=== PATIENT | male | born 1950 | race Caucasian/White ===

== ENCOUNTER 2017-08-14 14:01 | Emergency (ER) | payer BC, MEDICARE ==
--- NOTE | 2017-08-14 14:16 | ER Report ---
History and Physical Time Seen By MD: 14:15 Hx. of Stated Complaint: pt was trailriding, the horse got caught up in barbedwire, pt was bucked off horse and pt landed on his back. denies loss of conciousness, pt did not hit his hear. primary point of intact was on left scapula per pt. HPI/ROS CHIEF COMPLAINT: Back pain HISTORY OF PRESENT ILLNESS: This is a 66-year-old male who presents to the emergency department for left upper back pain secondary to falling off a horse. Patient states he was trail riding this morning, on vacation and the horse he was riding stepped on some charisse wire of course ultimately ended up knocking him off he fell onto his left scapular area. Patient denies hitting his head, no C- spine tenderness. No loss of consciousness. Soreness of breath secondary to pain. Patient states he has significant pain on the left upper back. No numbness or tingling. Intermittent nausea no vomiting. No loss of bowel or bladder. No numbness or tingling. REVIEW OF SYSTEMS: Constitutional: No fever, no chills. Eyes: No discharge. ENT: No sore throat. Cardiovascular: No chest pain, no palpitations. Respiratory: As above. Gastrointestinal: No abdominal pain, no vomiting. Genitourinary: No hematuria. Musculoskeletal: As above. Skin: No rashes. Neurological: No headache. Allergies: Coded Allergies: No Known Drug Allergies (Unverified , 08/14/17) Home Meds Active Scripts Cyclobenzaprine Hcl (CYCLOBENZAPRINE HCL) 10 Mg Tablet, 5-10 MG PO TID Y for PAIN, #9 TAB 0 Refills Prov:LIZZY ALVARADO [employer] 08/14/17 Reported Medications Aspirin (ASPIR 81) 81 Mg Tablet.dr, 81 MG PO QDAY, TAB 08/14/17 Albuterol Sulfate (VENTOLIN HFA) 18 Gm Inh, 2 PUFF INH Q4-6H, INH 08/14/17 Past Medical/Surgical History Patient has a past medical and surgical history of asthma, laminectomy. Reviewed Nurses Notes: Yes Constitutional Vital Sign - Last 24 Hours 08/14/17 08/14/17 08/14/17 08/14/17 14:07 14:30 14:50 15:05 Temp 98.9 Pulse 61 ??? 61 54 Resp 18 B/P (MAP) 180/101 157/104 (121) Pulse Ox 95 94 O2 Delivery Room Air 08/14/17 08/14/17 08/14/17 08/14/17 15:10 15:15 15:20 15:25 Pulse 54 53 52 53 Pulse Ox 90 88 89 90 08/14/17 08/14/17 08/14/17 08/14/17 15:30 15:35 15:40 15:45 Pulse 52 53 54 55 B/P (MAP) 118/67 (84) Pulse Ox 90 91 97 95 08/14/17 08/14/17 08/14/17 08/14/17 15:50 15:55 16:00 16:05 Pulse 53 56 55 59 B/P (MAP) 135/84 (101) Pulse Ox 97 76 93 96 Physical Exam General Appearance: The patient is alert, has no immediate need for airway protection and no signs of toxicity. Eyes: Pupils equal and round no pallor or injection. ENT, Mouth: Mucous membranes are moist. Respiratory: There are no retractions, lungs are clear to auscultation. Cardiovascular: Regular rate and rhythm, no murmurs, clicks or rubs. Gastrointestinal: Abdomen is soft and non tender, no masses, bowel sounds normal. Neurological: Alert and oriented 4. Moving all extremities. Following all commands. No focal neuro deficits. Skin: Warm and dry, no rashes. Musculoskeletal: Neck is supple non tender. Left scapular pain, no deformity, no crepitus. Extremities are nontender, nonswollen and have full range of motion. DIFFERENTIAL DIAGNOSIS: After history and physical exam differential diagnosis was considered for contusion, scapular fracture, rib fracture and pneumothorax. Medical Decision Making EKG/Imaging Imaging Location: [facility] Patient: Pa Clemens : 1950 Visit/Account:[id number] Date of Sevice: 08/14/2017 SCAPULA LEFT COMPARISONS: None. ADDITIONAL PERTINENT HISTORY: Ejected from horse with back pain FINDINGS: Osseous structures: Negative. Joint spaces: Negative. Surrounding soft tissues: Negative. IMPRESSION: Normal views of the left scapula Report Dictated By: See Franklin MD at 08/14/2017 3:40 PM Report E-Signed By: See Franklin MD at 08/14/2017 3:41 PM WSN:[id number] Location: [facility] Patient: Pa Clemens : 1950 Visit/Account:[id number] Date of Sevice: 08/14/2017 CHEST PA AND LAT COMPARISONS: None. ADDITIONAL PERTINENT HISTORY: Ejected from horse FINDINGS: Cardiomediastinal silhouette: Negative. Pulmonary vasculature: Negative. Lung lares: Negative. Pleural spaces: Negative. Osseous structures: Negative. Surrounding soft tissues: Negative. IMPRESSION: No evidence of acute cardiopulmonary disease. Report Dictated By: See Franklin MD at 08/14/2017 3:39 PM Report E-Signed By: See Franklin MD at 08/14/2017 3:40 PM WSN:[id number] ED Course/Re-evaluation Clinical Indication for ER IV: IV Access ED Course The patient was admitted to room. A history physical obtained. Differential diagnoses were considered. A two-view chest and scapular x-ray were negative for any acute abnormalities. Patient was given 4 mg IV Zofran, 4 mg IV morphine with significant pain relief. I did review these results with the patient, did tell patient that he likely has some soft tissue injuries and swelling however today continue monitoring this during his vacation and when he returns to [place]. The patient was given a prescription for Flexeril instructed to use ice and heat as appropriate and can take ibuprofen or Tylenol as needed for pain. Patient had no questions or concerns at this time and was discharged home. Decision to Disposition Date: Aug 14, 2017 Decision to Disposition Time: 16:01 Depart Departure Latest Vital Signs Vital Signs Date Time Temp Pulse Resp B/P (MAP) Pulse Ox O2 Delivery O2 Flow Rate FiO2 08/14/17 16:05 59 96 08/14/17 16:00 135/84 (101) 08/14/17 14:07 98.9 18 Room Air Impression: Primary Impression: Animal-rider injured by fall from or being thrown from horse in noncollision accident, initial encounter Additional Impressions: Back pain Contusion of back Condition: Improved Disposition: HOME OR SELF-CARE New Scripts Cyclobenzaprine Hcl (CYCLOBENZAPRINE HCL) 10 Mg Tablet 5-10 MG PO TID Y for PAIN, #9 TAB 0 Refills Prov: LIZZY ALVARADO- 08/14/17 Patient Instructions: Back Pain (ED), Contusion in Adults (ED) Additional Instructions: Drink plenty of water. Get plenty of rest. Take the Flexeril as needed for the back pain. Take ibuprofen 800 mg every 8 hours for thousand milligrams of Tylenol every 8 hours as needed for pain. Apply ice and/or heat as needed for comfort. If you experience increased shortness of breath or chest pain return to the emergency department immediately. If no improvement upon returning home follow-up with your primary care provider for reevaluation. Return to the ED for any other concerns or worsening symptoms. Problem Qualifiers Additional Impressions: Back pain Back pain location: thoracic back pain Chronicity: acute Back pain laterality: left Qualified Codes: M54.6 - Pain in thoracic spine Contusion of back Encounter type: initial encounter Laterality: left Qualified Codes: S20.222A - Contusion of left back wall of thorax, initial encounter LIZZY ALVARADOP- Aug 14, 2017 14:15
[2017-08-14] MEDS ORDERED: ALB18R INH (14:18)
[2017-08-14] MEDS ORDERED: ASPI-1471 PO (14:24)
[2017-08-14] MEDS ORDERED: ONDANSETRON 4 MG/2 ML VIAL IVP ONE (14:25)
[2017-08-14] MEDS ORDERED: MORPHINE 4 MG/ML SDV IVP ONE (14:25)
--- NOTE | 2017-08-14 15:43 | RADIOLOGY IMAGING REPORT ---
FACILITY: [facility] PATIENT NAME: Pa Clemens : 1950 MR: [id number] V: [id number] EXAM DATE: ORDERING PHYSICIAN: LIZZY ALVARADO TECHNOLOGIST: Location: [facility] [place] Patient: Pa Clemens : 1950 Visit/Account:[id number] Date of Sevice: 08/14/2017 CHEST PA AND LAT COMPARISONS: None. ADDITIONAL PERTINENT HISTORY: Ejected from horse FINDINGS: Cardiomediastinal silhouette: Negative. Pulmonary vasculature: Negative. Lung lares: Negative. Pleural spaces: Negative. Osseous structures: Negative. Surrounding soft tissues: Negative. IMPRESSION: No evidence of acute cardiopulmonary disease. Report Dictated By: See Franklin MD at 08/14/2017 3:39 PM Report E-Signed By: See Franklin MD at 08/14/2017 3:40 PM WSN:[id number]
--- NOTE | 2017-08-14 15:44 | RADIOLOGY IMAGING REPORT ---
FACILITY: [facility] [place] PATIENT NAME: Pa Clemens : 1950 MR: [id number] V: [id number] EXAM DATE: ORDERING PHYSICIAN: LIZZY ALVARADO TECHNOLOGIST: [place] [facility] [place] Patient: Pa Clemens : 1950 Visit/Account:[id number] Date of Sevice: 08/14/2017 SCAPULA LEFT COMPARISONS: None. ADDITIONAL PERTINENT HISTORY: Ejected from horse with back pain FINDINGS: Osseous structures: Negative. Joint spaces: Negative. Surrounding soft tissues: Negative. IMPRESSION: Normal views of the left scapula Report Dictated By: See Franklin MD at 08/14/2017 3:40 PM Report E-Signed By: See Franklin MD at 08/14/2017 3:41 PM WSN:[id number]
[2017-08-14 16:00] VITALS: BP 135/84
[2017-08-14] MEDS ORDERED: CYCL10TA29 PO (16:05)
== END 2017-08-14 16:20 | disposition home or self-care (01) ==
LOC: ER 14:20
DX: S20.222A Contusion of left back wall of thorax, initial encounter (principal); M54.6 Pain in thoracic spine
CPT/HCPCS: 71046; 73010; 96374; 96375; 99284; J2270; J2405